=== PATIENT | female | born 1990 | race Caucasian/White ===

== ENCOUNTER → 2021-12-30 12:18 | Outpatient (CLI) | payer BC, SELFPAY ==
--- NOTE | ~2021-12-30 | US_ITS ---
EXAMINATION: US OB <= 14 weeks fetus DATE: 12/30/2021 12:47 INDICATION: First trimester dating TECHNIQUE: Real-time pelvic transabdominal and transvaginal ultrasound was performed. COMPARISON: None. FINDINGS: The uterus measures 10.6 x 5.0 x 5.5 cm. There is an intrauterine gestational sac. A yolk sac is identified. heart motion is identified measuring 159 beats per minute (bpm) by M-mode Do ppler. The crown rump length measures 2.3 cm, which correlates with an estimated gestational ag e of 9 weeks and 0 day(s) (+/-) 6 day(s). The right ovary measures 2.3 x 1.3 x 1.5 cm. The left ovary measures 2.8 x 1.7 x 2.2 cm. There is nor mal vascular flow in the ovaries. There is no free fluid in the pelvis. IMPRESSION: 1. Live intrauterine with an estimated gestational age of 9 weeks and 0 day(s) (+/-) 6 day( s) and an estimated delivery date of 08/04/2022. Reviewed, dictated and finalized at location B. IMPRESSION: 1. Live intrauterine with an estimated gestational age of 9 weeks and 0 day(s) (+/-) 6 day(s) and an estimated delivery date of 08/04/2022.
== END ==
PROVIDERS: PCP Obstetrics & Gynecology Gynecology; Visit Provider Advanced Practice Midwife
DX: Z36.87 Encounter for antenatal screening for uncertain dates (principal); Z3A.09 9 weeks gestation of pregnancy
CPT/HCPCS: 76801

== ENCOUNTER → 2022-03-08 15:05 | Outpatient (CLI) | payer BC, SELFPAY ==
--- NOTE | ~2022-03-08 | US_ITS ---
EXAMINATION: US OB /maternal detail DATE: 03/08/2022 15:47 INDICATION: survey TECHNIQUE: Multiple obstetric sonographic images performed. FINDINGS: No prior studies for comparison. There is a single living fetus in transverse presentation. The placenta is posterior without placent a previa. Placental margin is 5.2 cm to the cervix. Cervical length is approximately 3.6 cm. Amniotic fluid volume is subjectively normal cardiac activity and movement is noted with a heart rate of 138 beats per minute. The following anatomy was identified as normal: 4 chamber heart 3 vessel cord cord insertion kidneys urinary bladder stomach spine diaphragm ventricles cisterna magna cerebellum The following biometric data were obtained: BPD: 42mm corresponds to gestational age 18 weeks 4 days. Head circumference: 158 mm corresponds to gestational age 18 weeks 5 days. Abdominal circumference: 132 mm corresponds to gestational age 18 weeks 5 days. Femur length: 28 mm corresponds to gestational age 18 weeks 3 days. Head circumference to abdominal circumference ratio: 1.19 (normal range for expected gestational age is 1.09-1.27). Estimated weight: 249 grams +/- 37 grams using Hadlock method, 39.5%. IMPRESSION: 1: Single living intrauterine with an estimated gestational age of 18weeks 5days by initial ultrasound measurements, with an EDC of 08/04/2022 in transverse presentation. 2. Normal survey. Reviewed, dictated and finalized at location A. LY TECH IMPRESSION: 1: Single living intrauterine with an estimated gestational age of 18 weeks 5days by initial ultrasound measurements, with an EDC of 08/04/2022 in tra nsverse presentation. 2. Normal survey.
== END ==
PROVIDERS: PCP Advanced Practice Midwife; Visit Provider Advanced Practice Midwife
DX: Z36.89 Encounter for other specified antenatal screening (principal); Z3A.18 18 weeks gestation of pregnancy
CPT/HCPCS: 76805

== ENCOUNTER 2022-05-22 14:41 | Outpatient (RCR) | payer BC, SELFPAY ==
[2022-05-22 15:35] LABS: Hematocrit 34.1 % (37.0-47.0); Hemoglobin 11.7 g/dL (12.0-15.0)
[2022-05-22 16:26] LABS: HIV 1/2 Ab P24 Ag Result Negative (Negative)
[2022-05-22 17:39] LABS: Vitamin D 25 Hydroxy 39.4 ng/mL
[2022-05-22] MEDS: RHO(D) IMMUNE GLOBULIN 300 MCG/2 ML SYRINGE IM (18:50)
== END 2022-08-20 23:59 | disposition home or self-care (01) ==
LOC: ANHLAB 14:41
PROVIDERS: Visit Provider Advanced Practice Midwife
DX: Z11.4 Encounter for screening for human immunodeficiency virus [HIV] (principal); Z29.13 Encounter for prophylactic Rho(D) immune globulin; O36.0190 Maternal care for anti-D [Rh] antibodies, unspecified trimester, not applicable or unspecified; Z3A.00 Weeks of gestation of pregnancy not specified
CPT/HCPCS: 36415; 82306; 85014; 85018; 85461; 86703; 86850; 86900; 86901; 90384; 96372; G0432; J2790

== ENCOUNTER → 2022-06-09 14:48 | Outpatient (CLI) | payer BC, SELFPAY ==
--- NOTE | ~2022-06-09 | US_ITS ---
EXAMINATION: US OB follow up DATE: 06/09/2022 15:23 INDICATION: Gestational size greater than dates. TECHNIQUE: Real-time transabdominal obstetric ultrasound. FINDINGS: Comparison to multiple prior studies sequentially, with oldest reviewed study dated 022. There is a single living fetus in vertex presentation. The placenta is posterior without placenta pr evia. cardiac activity and movement is noted with a heart rate of 161 beats per minute. T he amniotic fluid volume is normal. PAUL measures 12 cm (normal range is 7.7-24.2 cm. The following biometric data were obtained: BPD: 86mm corresponds to gestational age 34 weeks 4 days. Head circumference: 293.mm corresponds to gestational age 32 weeks 2 days. Abdominal circumference: 273mm corresponds to gestational age 31 weeks 3 days. Femur length: 61mm corresponds to gestational age 31 weeks 4 days. Estimated weight: 1836grams +/- 275grams 31.9%.] IMPRESSION: 1. Single living intrauterine in vertex presentation with an estimated gestational age of 32 weeks 0 days by inititial ultrasound. Appropriate interval growth. 2. Normal placenta. Reviewed, dictated and finalized at location B. [employer] SUPERVISOR IMPRESSION: 1. Single living intrauterine in vertex presentation with an estimat ed gestational age of 32 weeks 0 days by inititial ultrasound. Appropriate int erval growth. 2. Normal placenta.
== END ==
PROVIDERS: PCP Advanced Practice Midwife; Visit Provider Advanced Practice Midwife
DX: O36.5930 Maternal care for other known or suspected poor fetal growth, third trimester, not applicable or unspecified (principal); Z3A.32 32 weeks gestation of pregnancy
CPT/HCPCS: 76816

== ENCOUNTER 2022-07-10 16:39 | Outpatient (CLI) | payer BC, SELFPAY ==
--- NOTE | ~2022-07-10 | US_ITS ---
EXAMINATION: US OB follow up DATE: 07/10/2022 17:28 INDICATION: Size less than dates, third trimester TECHNIQUE: Real-time ultrasound of the pelvis was performed. The interpreting radiologist was not pre sent for the study. COMPARISON: 06/09/2022 FINDINGS: There is a single living fetus in vertex presentation. The placenta is fundal. cardia c activity and movement are noted. heart rate is 141 beats per minute (bpm). The cervical length is 5.4 cm. The amniotic fluid index is 13.9 cm which is normal (normal range: 7.7 cm to 24.9 cm). The following biometric data were obtained: Biparietal diameter (BPD): 9.1 cm; head circumference (HC): 32.1 cm; abdominal circumference (AC): 32 .2 cm; femur length (FL): 7.0 cm. These measurements are concordant. Estimated weight is 2881 g +/- 432 g, which correlates with the 47th percentile when 08/04/2022 is used as estimated date of delivery. As single measurements, these parameters are each equal to the following estimated gestational ages w ith ranges of +/- 2 standard deviations: BPD: 37 weeks 1 days +/- 3 weeks 1 days. HC: 36 weeks 2 days +/- 2 weeks 5 days. AC: 36 weeks 1 days +/- 3 weeks 0 days. FL: 36 weeks 0 days +/- 3 weeks 0 days. estimated gestational age based solely on measurements from this exam is 36 weeks 3 days +/- 2 weeks 4 days. IMPRESSION: 1. Single living fetus in vertex presentation. 2. Normal amniotic fluid index. 3. Estimated weight is 2881 g +/- 432 g, which correlates with the 47th percentile when 08/05/19 23 is used as estimated date of delivery. Reviewed, dictated and finalized at location F. IMPRESSION: 1. Single living fetus in vertex presentation. 2. Normal amniotic fluid index. 3. Estimated weight is 2881 g +/- 432 g, which correlates with the 47th p ercentile when 08/04/2022 is used as estimated date of delivery.
== END 2022-07-10 16:40 | disposition home or self-care (01) ==
LOC: ANHIMG 16:40
PROVIDERS: Visit Provider Advanced Practice Midwife
DX: O36.5930 Maternal care for other known or suspected poor fetal growth, third trimester, not applicable or unspecified (principal)
CPT/HCPCS: 76816

== ENCOUNTER 2022-07-31 16:09 | Inpatient (IN) | payer BC, SELFPAY ==
[2022-07-31] VITALS (15 sets, daily range): BP systolic 112–142; BP diastolic 64–102; PULSE 72–97; TEMP 36.6–36.8
[2022-07-31 17:25] LABS: Basophils Percent Auto 0.2 % (0.2-1.2); Eosinophils Percent Auto 0.2 % (0-4.4); Hematocrit 34.1 % (37.0-47.0); Hemoglobin 11.4 g/dL (12.0-15.0); Immature Granulocyte Absolute 0.03 K/mm3 (0.00-0.031); Immature Granulocyte Percent A 0.3 % (0-0.5); Lymphocytes Absolute Auto 2.26 K/mm3 (0.9-3.2); Lymphocytes Percent Auto 24.8 % (18.3-44.2); Mean Corpuscular HGB Conc 33.4 g/dl (32-36); Mean Corpuscular Hemoglobin 29.1 pg (26-34); Mean Platelet Volume 10.1 fl (7.4-10.4); Monocytes Absolute Auto 0.5 K/mm3 (0.1-0.6); Neutrophils Absolute Auto 6.3 K/mm3 (1.3-6.7); Neutrophils Percent Auto 69.5 % (45.5-73.1); Platelet Count Result 208 k/mm3 (150-375); Red Blood Count 3.92 M/mm3 (4.2-5.4); Red Cell Distribution Width 13.8 % (11.5-14.5); White Blood Count 9.1 K/mm3 (4.5-10.0)
--- NOTE | 2022-07-31 17:36 | LDADM ---
This patient, Mckenna Gentile, was admitted to Labor/Delivery/Recovery 104 on 07/31/22 at 16:09. Plans for labor, pain management and were discussed with patient. Patient/family oriented to hospital policies and general routines including ID bracelet, bed and alarms, visiting hours, pain management, procedures, bathroom and other care routines, personal items, smoking policy, room service/diet and guest tray routines, security routines, and visiting hours. Patient/Family are encouraged to report perceived risks to care and to ask questions if they do not understand what they are told or what they should do. See OBIX for further documentation.
--- NOTE | 2022-07-31 18:17 | WPDOBADMIT ---
Obstetrics - Admit Note Admission Note: record reviewed. No pertinent additions to the history and/or any subsequent changes in the physical findings that are not consistent with the expected course of the were found. Additions to the history and/or subsequent changes in the physical findings follow. Pt from office with 8 minute prolonged FHT deceleration. FHTs on arrival to L&D WNL. Pt has no new complaints.
--- NOTE | 2022-07-31 18:18 | PM.OBPNLAB ---
Pain Control Date/time seen: 07/31/22 18:18 Pelvic Exam Dilation (cm): 1 Effacement (%): 50 station: -3 Amniotic membrane status: Intact Comments: head well applied to cervix. Contractions Monitor mode: External Contraction frequency: 0 Status status: Category l Assessment and Plan Comments: CNM at bedside. Discussed plan of care and IOL process. Discussed option of placing slater balloon and pitocin for IOL. She is aggreable to this. She desires IV analgesia before procedure.
[2022-07-31] MEDS: fentaNYL CITRATE INJ (*CRX) 100 MCG/2 ML VIAL 50 MCG IV PUSH ×2 (18:51→21:59)
--- NOTE | 2022-07-31 19:06 | PM.OBPNLAB ---
Pain Control Date/time seen: 07/31/22 1900 Pelvic Exam Dilation (cm): 1 Effacement (%): 50 station: -3 Amniotic membrane status: Intact Contractions Monitor mode: External Contraction frequency: 0 Contraction pattern: Irregular Status status: Category l Assessment and Plan Comments: Pt received 25mcg Fentanyl IVP. FHTs reassuring with moderate variability and accelerations. Azul balloon placed through cervical os using stylette. Stylette removed and catheter inflated with 60ml sterile saline. Pt tolerated procedure well with c/o mild cramping. Plan to start oxytocin at 1930 as long as FHTs remain reassuring.
--- NOTE | 2022-07-31 19:10 | PM.OBPRVD ---
OB - Delivery Note Procedure Delivery date: 08/01/22 Procedure: Events: Other (covid infection in ) Induction method: Per Pitocin Protocol and Other (slater balloon) Delivery augmentation: Rupture of Membranes Delivery monitor: External FHT, External Uterine and Internal Uterine Route of delivery: Episiotomy description: None Laceration Description: Vaginal and Labial (right) Delivery repair: vicryl Specimen: Yes Quantitative Blood Loss (ml): 300 Anesthesia type: Epidural Disposition: Floor Narrative: Pt from office after Prolonged deceleration. heart rate reassuring once arrived to Labor and delivery. Plan of care discussed with patient and decision made to proceed with induction of labor. She received a Slater balloon and Pitocin and made change to complete dilation. She pushed with contractions and delivered the head slowly over an intact perineum. There was excellent restitution and the remainder of the infant delivered easily without maternal expulsive effort. The infant was placed on the maternal abdomen and dried and stimulated by the pediatric team. Cord was doubly clamped and cut after 1 minute of life and cord segment as well as cord blood and cord gases were obtained. A left vaginal wall first-degree laceration was repaired. A right vaginal and right labial laceration was also repaired in usual fashion. All delivery counts were correct there was excellent hemostasis. Mother and infant skin to skin in the delivery room Baby Date of : 08/01/22 Time of : 13:42 Weeks of gestation at delivery: 39 gender: Female Weight (pounds): 5 Weight (ounces): 9 presentation: vertex position: Right Occiput Anterior Placenta delivery description: Spontaneous Cord Vessel Description: 3 Vessels, Clamped/Cut and Delayed Cord Clamping score one minute: 8 score five minutes: 9
--- NOTE | 2022-07-31 19:10 | PM.OBDSVD ---
DS: Admitting Diagnosis Discharge Date 08/03/2022 Admitting Diagnosis 31 y.o. G2PO at 39 weeks days Prolonged FHT deceleration in the office IOL at term Hx Covid infection in 2nd trimester of Rh negative status (s/p Rhogam) DS: Discharge Diagnosis Discharge Diagnosis (1) (normal spontaneous vaginal delivery): Code(s): O80 - Encounter for full-term uncomplicated delivery Status: Acute (2) Mother currently breast-feeding: Code(s): Z39.1 - Encounter for care and examination of lactating mother Status: Acute OB - DS: Summary Hospital Course Hospital Course: uncomplicated OB Procedures : NST and Ultrasound OB Procedures Intrapartum: Spontaneous Vag Delivery OB Procedures: : None Peripartum Data Delivery Method: Natural Vaginal Laceration Description: Vaginal - 1st Degree and Labial Episiotomy description: None complications: none Time Spent with Patient Time attestation: Total time spent providing and/or coordinating discharge services: DS: Data Data Completed and Pending Labs on day of discharge: Labs from last 24 hours 07/31/22 07/31/22 07/31/22 17:10 17:10 17:10 WBC 9.1 RBC 3.92 L Hgb 11.4 L Hct 34.1 L MCV 87.0 MCH 29.1 MCHC 33.4 RDW 13.8 Plt Count 208 MPV 10.1 Immature Gran % (Auto) 0.3 Neut % (Auto) 69.5 Lymph % (Auto) 24.8 [place] % (Auto) 5.0 Eos % (Auto) 0.2 Baso % (Auto) 0.2 Lymph # (Auto) 2.26 [place] # (Auto) 0.5 Eos # (Auto) 0.0 Baso # (Auto) 0.0 Abs Immat Gran (auto) 0.03 Absolute Neuts (auto) 6.3 Absolute Nucleated RBC 0.0 Nucleated RBC % 0.0 RPR Pending Blood Type O Negative Antibody Screen Pending Discharge Plan Discharge Attending physician on discharge: Geovanna Quiroga Consulting providers: Rupa Cleary; Makayla Silva; Hemant Reese Discharging Clinician: Geovanna Quiroga Anticipated Discharge Date/Time: 08/03/22 14:31 Patient Disposition: Home, Self-Care Activity: may shower Diet: as tolerated Discharge Instructions: Education: Mom and Baby Guide Given to: Mother Follow-Up: Call your delivering provider's office for an appointment to be seen in: 6 Weeks Mom and baby should come to the [facility] for the follow-up appointment. Appointment Date/Time: August 04, 2022 at 11:00 am What to expect at your follow-up visit: Blood Pressure Check Physical Assessment Call [phone] if you are unable to keep your appointment time. BREAST CARE: * Wear a snug supportive bra. * For engorgement discomfort: Breast Feeding: * Apply warm moist washcloths * Express milk as needed to relieve engorgement * Wear loose clothing Bottle Feeding: * May apply ice packs * For sore nipples: * Identify correct latch-on * Apply warm moist washcloths before and after nursing * Air dry nipples after nursing * May apply Lansinoh cream to nipples EPISIOTOMY/PERINEAL CARE: * Until bleeding stops, use your sujatha bottle after urinating * Change your pad frequently throughout the day * You may take sitz baths several times a day (fill your bathtub with warm water and soak for 20 minutes.) Do NOT bathe in the water * No tub baths until seen by your physician - You may shower ACTIVITY: * Rest as much as possible. * Do not exercise or lift anything heavier than your baby (such as laundry or other children.) * Avoid stairs or driving as much as possible. * Do not put anything into the vagina. No douching, tampons, or sexual activity until seen by physician. NOTIFY PHYSICIAN IF YOU HAVE ANY QUESTIONS OR IF ANY OF THE FOLLOWING SYMPTOMS OCCUR: * If your vaginal area becomes red, swollen, or more painful than what you have experienced in the hospital. * If your vaginal bleeding becomes foul smelling. * If your vaginal bleedin
[2022-07-31] MEDS: LACTATED RINGERS 1,000 ML 125 ML IV CONT ×2 (19:35→23:30)
[2022-07-31] MEDS: OXYTOCIN 30 UNITS/NS 500 ML 30 UNITS/500 ML BAG IV CONT (19:35)
--- NOTE | 2022-07-31 19:41 | WPDANESEPP ---
Anes - Eval Pre Procedure Procedure: Labor epidural Date/Time: 07/31/22 19:41 Pre Op Diagnosis: Induction of Labor Patient Data Age: 31 Gender: F Height: Weight: Last Vital Signs Pulse 91 07/31/22 19:31 BP 134/86 07/31/22 19:31 O2 Del Method Room Air 07/31/22 17:35 Allergies Allergy/AdvReac Type Severity Reaction Status Date / Time No Known Allergies Allergy Unverified 11/29/10 12:17 Home Medications Medication Instructions Recorded Confirmed Type Vitamin 1 mg PO DAILY 07/05/22 07/31/22 History Laboratory Tests 07/31/22 07/31/22 07/31/22 17:10 17:10 17:10 WBC 9.1 K/mm3 K/mm3 (4.5-10.0) RBC 3.92 M/mm3 L M/mm3 (4.2-5.4) Hgb 11.4 g/dL L g/dL (12.0-15.0) Hct 34.1 % L % (37.0-47.0) MCV 87.0 fl fl (80-100) MCH 29.1 pg pg (26-34) MCHC 33.4 g/dl g/dl (32-36) RDW 13.8 % % (11.5-14.5) Plt Count 208 k/mm3 k/mm3 (150-375) MPV 10.1 fl fl (7.4-10.4) Immature Gran % (Auto) 0.3 % % (0-0.5) Neut % (Auto) 69.5 % % (45.5-73.1) Lymph % (Auto) 24.8 % % (18.3-44.2) [place] % (Auto) 5.0 % % (2.6-8.5) Eos % (Auto) 0.2 % % (0-4.4) Baso % (Auto) 0.2 % % (0.2-1.2) Lymph # (Auto) 2.26 K/mm3 K/mm3 (0.9-3.2) [place] # (Auto) 0.5 K/mm3 K/mm3 (0.1-0.6) Eos # (Auto) 0.0 K/mm3 K/mm3 (0-0.3) Baso # (Auto) 0.0 K/mm3 K/mm3 (0.0-0.1) Abs Immat Gran (auto) 0.03 K/mm3 K/mm3 (0.00-0.031) Absolute Neuts (auto) 6.3 K/mm3 K/mm3 (1.3-6.7) Absolute Nucleated RBC 0.0 K/mm3 K/mm3 (0.0-0.012) Nucleated RBC % 0.0 % % (0.0-0.2) RPR Pending Blood Type O Negative Antibody Screen Pending Patient hx anesthesia problems: none Family hx anesthesia problems: none Results Review: All pre-operative results and documents have been reviewed as part of the pre-operative evaluation. [facility] Past Medical History Medical History IUP (intrauterine ), incidental Obesity (BMI 30-39.9) Family History Family History Father Hypertension Grandparent Hypertension Social History Social History Smoking status: Never smoker Substance use: never Lack of Transportation: No Lack of Food: Never True Current Housing: I Have Housing Concerned About Future Housing: No Difficulty Paying Gas/Electric Bills: No Difficulty Paying for Meds: No Currently Unemployed: No Education: Bachelor's Degree Difficulty w/ Childcare or Family Care: No Spiritual care concerns: No Exam Day of Procedure 07/31/22 19:41 Patient weight: obese Heart: regular rate and rhythm Lungs: normal air movement Airway: Mallampati scale Neurological: alert and oriented
--- NOTE | 2022-07-31 22:09 | PM.OBPNLAB ---
Pain Control Date/time seen: 07/31/22 3240 Pain control: tolerating well Comments: feeling occasional cramping. Pelvic Exam Dilation (cm): 5 Effacement (%): 70 station: -2 Amniotic membrane status: Intact Comments: head very well applied to cervix. Mod amt bloody show (WNL) Contractions Monitor mode: External Contraction pattern: Irregular Status status: Category l Assessment and Plan Pitocin rate (mU/min): 6 Assessment: induction ongoing Comments: Attempted amniotomy after discussion of plan of care. Unable to achieve fluid return. Will continue to up-titrate pitocin as needed to achieve adequate contraction pattern. Discussed IUPC placement at a later time after ROM confirmed.
[2022-08-01] VITALS (184 sets, daily range): BP systolic 82–148; BP diastolic 44–99; PULSE 65–134; RESP 16; TEMP 36.4–38.4; O2SAT 89–100
[2022-08-01] MEDS: LACTATED RINGERS 1,000 ML 125 ML IV CONT (03:13)
[2022-08-01 06:47] LABS: Rapid Plasma Reagin Non-Reactive (NonReactive)
--- NOTE | 2022-08-01 07:33 | PM.OBPNLAB ---
Pain Control Date/time seen: 08/01/22 07:15 Pain control: tolerating well and epidural Comments: Having some left sided discomfort. Epidural bolus button recently used. Pelvic Exam Dilation (cm): 8 Effacement (%): 95 station: 0 Amniotic membrane status: Ruptured Contractions Monitor mode: External Contraction frequency: 4 Contraction pattern: Irregular Status status: Category l Assessment and Plan Assessment: induction ongoing Comments: CNM called for update at 0610. RN reports pt Anterior Lip with BBOW. CNM told that FHT tracing looks reassuring at that time but there had previously been repetitive late decelerations and pitocin was stopped/decreased. CNM clarified that at 0610 the FHT tracing was reassuring with no decelerations. Plan to come to bedside for amniotomy this am. CNM to bedside at 0710. FHT tracing Cat 2 with one variable deceleration. Reassured by moderate variability and accelerations. Discussed plan of care. SVE 8/95/0, unable to palpate BOW. Recommended IUPC to facilitate monitoring of contractions and pt is agreeable. IUPC inserted and returned with clear/blood tinged fluid. Recommend frequent repositioning. Anticipate vaginal . Dr. Quiroga updated on pt status.
[2022-08-01] MEDS: ONDANSETRON INJ 4 MG/2 ML VIAL IV PUSH (08:48)
--- NOTE | 2022-08-01 13:14 | PM.OBPNLAB ---
Pain Control Date/time seen: 08/01/22 13:00 Pain control: tolerating well and epidural Comments: pushing well with contractions. Slight capput. Making small amount of descent. Pelvic Exam Dilation (cm): 10 Effacement (%): 100 station: +3 Amniotic membrane status: Ruptured Contractions Monitor mode: Internal Contraction frequency: 3 Contraction pattern: Regular Status status: Category ll Assessment and Plan Assessment: active labor Comments: Continuing to push with contractions. Recommend frequent position changes. Anticipate vaginal .
[2022-08-01] MEDS: OXYTOCIN 30 UNITS/NS 500 ML 30 UNITS/500 ML BAG 125 UNITS IV CONT (14:04)
[2022-08-01] MEDS: IBUPROFEN 600 MG TABLET PO (16:06)
[2022-08-01] MEDS: WITCH HAZEL 40 PADS 1 PAD TOPICAL (16:06)
[2022-08-01] MEDS: BENZOCAINE 20% AER SPR (*SP) 56 GM CAN 1 SPRAY TOPICAL (16:06)
--- NOTE | 2022-08-01 17:00 | PC.NURSE ---
Patient transferred to post room #286 via wheelchair. Support person present. Oriented to unit, room, information board, rooming in, admission packet and security measures. Patient verbalizes understanding.
[2022-08-02 04:30] VITALS: BP 110/72; PULSE 79; RESP 16; TEMP 36.3
[2022-08-02] MEDS: IBUPROFEN 600 MG TABLET PO ×2 (04:35→18:00)
[2022-08-02 05:35] LABS: Hemoglobin 9.6 g/dL (12.0-15.0)
[2022-08-02] MEDS: DOCUSATE SODIUM 100 MG CAPSULE PO ×2 (07:45→18:00)
[2022-08-02] MEDS: POLYSACCHARIDE IRON COMPLEX 150 MG CAPSULE PO ×2 (07:45→18:00)
[2022-08-02] MEDS: ACETAMINOPHEN 325 MG TABLET 650 MG PO (07:45)
[2022-08-02] MEDS: MULTIVIT/MIN/PREN/FOL AC/IRON TABLET 1 TAB PO (07:50)
[2022-08-02 07:58] VITALS: BP 118/73; PULSE 80; RESP 18; TEMP 36.5; O2SAT 98
[2022-08-02 08:15] VITALS: PULSE 80; RESP 18; O2SAT 98
--- NOTE | 2022-08-02 08:37 | PC.NURSE ---
On 08/02/22, the student, Blanche Tyler, provided care and completed [employer] documentation on this patient. I have reviewed the student's documentation and agree with the findings.
--- NOTE | 2022-08-02 09:59 | WPDANLDPN2 ---
Anes-Prog Note L&D Date/Time: 08/02/22 09:59 Comfortable throughout: labor and delivery Neuraxial method: epidural Epidural/Spinal procedure site: clean & non-tender Neuro status: Neuro function grossly intact. Cardiovascular status: normal Respiratory status: normal Airway patency: baseline Mental status: baseline Post-Op hydration status: normal Vital Signs: Last Vital Signs Temp 36.5 C 08/02/22 07:58 Pulse 80 08/02/22 08:15 Resp 18 08/02/22 08:15 BP 118/73 08/02/22 07:58 Pulse Ox 98 08/02/22 08:15 O2 Del Method Room Air 08/02/22 08:15 Pain score (VAS): 2 I/O: Intake & Output 08/01/22 08/02/22 08/02/22 23:59 07:59 15:59 Intake Total 500 500 Balance 500 500 Patient feedback: Patient satisfied with anesthetic care.
--- NOTE | 2022-08-02 12:34 | PM.OBPNVD ---
OB - PN: Subj Subjective Date/time seen: 08/02/22 12:34 Patient comments: no complaints and pain well controlled baby status: doing well [place] feeding status: pumping and bottle feeding OB - PN: Obj Data Labs 08/02/22 04:31 Labs: Laboratory Results - last 24 hr 08/02/22 04:31 Hgb 9.6 L Hct 29.0 L OB - PN A/P Plan day: 1 Plan: routine care Comments: plan to work with nurse on latching. Recommend pumping x 1-2 minutes prior to attempt latch due to flat nipples. Time Spent With Patient Time: Total time spent is greater than 50% in coordination of care (as documented) at patient's floor/unit and/or counseling patient: Review of Systems Review of Systems: All systems reviewed & are unremarkable except as noted in HPI and below Exam Narrative: Alert and oriented. Mood is pleasant and cooperative. Urinating without difficulty. Denies passing any large clots. Perineum with minimal edema. Fundus firm and below umbilicus. Const: General: cooperative, healthy appearing, no acute distress and alert Orientation/consciousness: patient oriented x3 Limitations: no limitations Resp: Effort & Inspection: normal respiratory effort Auscultation: clear to auscultation bilaterally Cardio: Rate: regular rate GI: Inspection: normal to inspection Neuro: General: patient oriented x3 Extrem: General: normal to inspection Psych: Appearance: grossly normal Mental Status: mental status grossly normal Affect: normal affect Thought process: Normal thought process present
[2022-08-02 12:39] VITALS: BP 114/85; PULSE 81; RESP 16; TEMP 36.8; O2SAT 97
--- NOTE | 2022-08-02 15:41 | PC.NURSE ---
[phone] Report received from Primary RN is that mother decided to pump and feed only. Introductions were made, then consulted with patient to assess needs related to . Mother led the conversation with her?plans to feed?her and the?experience so far. Resources provided for inpatient and outpatient services with the feeding sheet, business and name written on the white board. RN encouraged [id number]-cd-ldab, instructions given on cleaning, care, usage, that there should be no pain, pumping schedule for milk production, collection, and storage of human milk. Mother is encouraged to record pumping schedule on the feeding sheet. Offered an opportunity to be assessed for correct placement and flange size. Encouraged pumping consistently for comfort and nipple stretching/stimulation for adequate milk production every 3 hours (8 times in 24 hours) 1-2 times at night. Mother voiced understanding of the education shared along with mom and baby guide for additional resource information. Reported to the primary RN.
[2022-08-02 18:00] VITALS: PULSE 81; RESP 16; O2SAT 97
[2022-08-02 19:16] VITALS: BP 118/75; PULSE 108; RESP 16; TEMP 36.4
--- NOTE | 2022-08-03 07:50 | PM.OBPNVD ---
OB - PN: Subj Subjective Date/time seen: 08/03/22 07:50 Patient comments: no complaints and pain well controlled baby status: doing well OB - PN: Obj Data Labs 08/02/22 04:31 OB - PN A/P Plan day: 2 Plan: routine care, discharge home, follow up 6 weeks and other (and 3 wks nexplanon) Time Spent With Patient Time: Total time spent is greater than 50% in coordination of care (as documented) at patient's floor/unit and/or counseling patient: Exam : Bimanual exam- vagina & uterus: other (Uterus firm, nt @U)
[2022-08-03 08:10] VITALS: BP 120/74; PULSE 77; RESP 18; TEMP 36.6; O2SAT 99
[2022-08-03 11:00] VITALS: PULSE 77; RESP 18; O2SAT 99
[2022-08-03] MEDS: DOCUSATE SODIUM 100 MG CAPSULE PO (11:00)
[2022-08-03] MEDS: MULTIVIT/MIN/PREN/FOL AC/IRON TABLET 1 TAB PO (11:00)
[2022-08-03] MEDS: IBUPROFEN 600 MG TABLET PO (11:00)
[2022-08-03] MEDS: POLYSACCHARIDE IRON COMPLEX 150 MG CAPSULE PO (11:00)
--- NOTE | 2022-08-03 12:34 | PC.NURSE ---
Patient viewed the discharge video Mother & Baby Care, The First Two Weeks . Patient was given the opportunity and encouraged to ask questions. Patient verbalized understanding of information shared and has been given the mother/baby guide for home reference.
--- NOTE | 2022-08-03 14:35 | PC.NURSE ---
Addendum entered by Lady Garay RN 08/03/22 14:38: Encouraged mother to feeding her infant on demand about every 3 hours. Mother voiced understanding of the information. Original Note: [id number] Purposefully rounded to assess needs before discharge to home. Mother led the conversation with her experience and plan to feed her so far with pumping and bottle. Mother was again offered assistance with as she was yesterday and again mother declined. Mother is feeding appropriately for growth of and understands stimulating infant to eat if needed. Infant has had appropriate feedings in the last 24 hours meets the outcomes for weight, output and jaundice at this time. Mother states she is confident to continue pump and bottle feed her infant at home, when to call for assistance and denies any additional assistance or education at this time. Reinforced understanding of milk production, transition of milk, signs of adequate intake, transition of stool, prevention/relief of engorgement, prevention/response r/t mastitis, responsive watching for feeding cues, the different methods of stimulating infant to breastfeed 2-3 hours after the start of the last feeding, community resources, and when to call a provider using the resource of the mom and baby guide. Mother voiced understanding of the education shared. Reported to the primary RN.
[2022-08-04 11:27] VITALS: BP 123/75; PULSE 81; RESP 18; TEMP 37.1; O2SAT 98
== END 2022-08-03 11:45 | disposition home or self-care (01) | DRG 807 ==
LOC: ANHLDR 08-01 14:31 → ANHOB2 08-01 17:02
PROVIDERS: Advanced Practice Midwife; Admitting Provider Obstetrics & Gynecology Gynecology; Visit Provider Obstetrics & Gynecology Gynecology
DX: O76 Abnormality in fetal heart rate and rhythm complicating labor and delivery (principal); Z37.1 Single stillbirth; O70.0 First degree perineal laceration during delivery; Z3A.39 39 weeks gestation of pregnancy; Z86.16 Personal history of COVID-19; Z67.91 Unspecified blood type, Rh negative
CPT/HCPCS: 36415; 85014; 85018; 85025; 86592; 86850; 86880; 86900; 86901; 86902; 88307; A9270; J2405; J2590; J2795; J3010; J7120